=== PATIENT | male | born 1995 | race American Indian/Alaskan Native ===

== ENCOUNTER 2017-09-05 16:27 | Emergency (ER) | payer OTHER ==
[2017-09-05] MEDS ORDERED: Sodium Chloride 0.9% 1,000 ML IV SCH (17:30)
--- NOTE | 2017-09-05 17:54 | EDM.PDOC ---
ED HPI GENERAL MEDICAL PROBLEM - General Chief Complaint: General Stated Complaint: BODY ACHES / CHEST PAIN Time Seen by Provider: 09/05/17 17:00 Source of Information: Reports: Patient, Family History Limitations: Reports: No Limitations - History of Present Illness INITIAL COMMENTS - FREE TEXT/NARRATIVE: 21-year-old male who is been having difficulty sleeping for the last 3 nights, panicking, very anxious about his health and also having intermittent chest pain. He's been drinking alcohol to help with the anxiety. He doesn't do any other drugs according to his father, he is a good athlete and student. No previous health problems, no medications. He arrives very anxious, trembling, hyperventilating. Onset: Gradual (Developed over the past 3 days) Severity: Moderate Worsens with: Reports: Other (Thinks he may have had this start when he had a dream he was at his own .) Associated Symptoms: Reports: Chest Pain, Nausea/Vomiting, Other (Abdominal cramps) Chest Pain Score (Numeric/FACES): 7 - Related Data Allergies Allergy/AdvReac Type Severity Reaction Status Date / Time amoxicillin Allergy Rash Verified 09/05/17 16:37 Penicillins Allergy Rash Verified 09/05/17 16:37 Home Meds: Home Meds NK [No Known Home Meds] 09/05/17 [History] Past Medical History - Past Health History Medical/Surgical History: Denies Medical/Surgical History Social & Family History - Tobacco Use Packs/Tins Daily: 0.5 - Caffeine Use Caffeine Use: Reports: Energy Drinks - Alcohol Use Days Per Week of Alcohol Use: 4 Number of Drinks Per Day: 8 Total Drinks Per Week: 32 Date of Last Drink: 09/04/17 - Recreational Drug Use Recreational Drug Use: No ED ROS GENERAL - Review of Systems Review Of Systems: See Below Constitutional: Reports: Malaise. Denies: Fever, Chills Respiratory: Denies: Shortness of Breath Cardiovascular: Reports: Chest Pain GI/Abdominal: Reports: Abdominal Pain, Nausea, Vomiting Skin: Reports: No Symptoms Neurological: Reports: Dizziness, Headache Psychiatric: Reports: Anxiety ED EXAM, GENERAL - Physical Exam Exam: See Below Exam Limited By: No Limitations General Appearance: Alert, Anxious, Mild Distress Eye Exam: Bilateral Eye: Abnormal EOM Respiratory/Chest: No Respiratory Distress, Lungs Clear Cardiovascular: Regular Rate, Rhythm. No: Tachycardia GI/Abdominal: Other (Very lean abdomen, even mild palpation causes some tenderness) Extremities: Normal Inspection. No: Pedal Edema Neurological: Alert, Oriented Psychiatric: Anxious Skin Exam: Warm, Dry Course - Vital Signs Last Recorded V/S: Last Vital Signs Temp 97.9 F 09/05/17 16:41 Pulse 71 09/05/17 16:41 Resp 26 H 09/05/17 16:41 BP 158/74 H 09/05/17 16:41 Pulse Ox 99 09/05/17 16:41 - Orders/Labs/Meds Labs: Laboratory Tests 09/05/17 09/05/17 09/05/17 Range/Units 17:10 17:10 17:10 WBC 9.1 (4.5-11.0) K/uL RBC 4.40 (4.30-5.90) M/uL Hgb 14.3 (12.0-15.0) g/dL Hct 42.2 (40.0-54.0) % MCV 96 (80-98) fL MCH 33 H (27-31) pg MCHC 34 (32-36) % Plt Count 311 (150-400) K/uL Puncture Site Rt.radial ABG pH 7.521 H (7.350-7.450) ABG pCO2 26.9 L (35.0-42.0) mmHg ABG pO2 67.1 L (75.0-100.0) mmHg ABG HCO3 19.3 L (22.0-26.0) mmol/L ABG Total CO2 16.3 L (23.0-27.0) mmol/L ABG O2 Saturation 99.8 H (95.0-98.0) % ABG O2 Content 19.5 (15.0-23.0) %vol ABG Base Excess 0.4 mm/L ABG Hemoglobin 14.1 (13.5-18.0) g/dL ABG Oxyhemoglobin 97.1 % ABG Carboxyhemoglobin 2.2 H (0.0-1.6) % ABG Methemoglobin 0.5 % Dev Test Passed O2 Delivery Device Room air Sodium 141 (140-148) mmol/L Potassium 3.6 (3.6-5.2) mmol/L Chloride 102 (100-108) mmol/L Carbon Dioxide 28 (21-32) mmol/L Anion Gap 10.7 (5.0-14.0) mmol/L BUN 7 (7-18) mg/dL Creatinine 0.9 (0.8-1.3) mg/dL Est Cr Clr Drug Dosing 126.60 mL/min Estimated GFR (MDRD) > 60 (>60) Glucose 94 (74-106) mg/dL Calcium 9.3 (8.5-10.1) mg/dL Total Bilirubin 0.9 (0.2-1.0) mg/dL AST 30 (15-37) U/L ALT 33 (12-78) U/L Alkaline Phosphatase 103 (46-116) U/L Total Protein 8.1 (6.4-8.2) g/dL Albumin 4.2 (3.4-5.0) g/dL Globulin 3.9 H (2.3-3.5) g/dL Albumin/Globulin Ratio 1.1 L (1.2-2.2) Urine Opiates Screen (NEGATIVE) Ur Oxycodone Screen (NEGATIVE) Urine Methadone Screen (NEGATIVE) Ur Propoxyphene Screen (NEGATIVE) Ur Barbiturates Screen (NEGATIVE) Ur Tricyclics Screen (NEGATIVE) Ur Phencyclidine Scrn (NEGATIVE) Ur Amphetamine Screen (NEGATIVE) U Methamphetamines Scrn (NEGATIVE) Urine MDMA Screen (NEGATIVE) U Benzodiazepines Scrn (NEGATIVE) U Cocaine Metab Screen (NEGATIVE) U Marijuana (THC) Screen (NEGATIVE) Ethyl Alcohol mg/dL 09/05/17 09/05/17 Range/Units 17:10 17:15 WBC (4.5-11.0) K/uL RBC (4.30-5.90) M/uL Hgb (12.0-15.0) g/dL Hct (40.0-54.0) % MCV (80-98) fL MCH (27-31) pg MCHC (32-36) % Plt Count (150-400) K/uL Puncture Site ABG pH (7.350-7.450) ABG pCO2 (35.0-42.0) mmHg ABG pO2 (75.0-100.0) mmHg ABG HCO3 (22.0-26.0) mmol/L ABG Total CO2 (23.0-27.0) mmol/L ABG O2 Saturation (95.0-98.0) % ABG O2 Content (15.0-23.0) %vol ABG Base Excess mm/L ABG Hemoglobin (13.5-18.0) g/dL ABG Oxyhemoglobin % ABG Carboxyhemoglobin (0.0-1.6) % ABG Methemoglobin % Dev Test O2 Delivery Device Sodium (140-148) mmol/L Potassium (3.6-5.2) mmol/L Chloride (100-108) mmol/L Carbon Dioxide (21-32) mmol/L Anion Gap (5.0-14.0) mmol/L BUN (7-18) mg/dL Creatinine (0.8-1.3) mg/dL Est Cr Clr Drug Dosing mL/min Estimated GFR (MDRD) (>60) Glucose (74-106) mg/dL Calcium (8.5-10.1) mg/dL Total Bilirubin (0.2-1.0) mg/dL AST (15-37) U/L ALT (12-78) U/L Alkaline Phosphatase (46-116) U/L Total Protein (6.4-8.2) g/dL Albumin (3.4-5.0) g/dL Globulin (2.3-3.5) g/dL Albumin/Globulin Ratio (1.2-2.2) Urine Opiates Screen Negative (NEGATIVE) Ur Oxycodone Screen Negative (NEGATIVE) Urine Methadone Screen Negative (NEGATIVE) Ur Propoxyphene Screen Negative (NEGATIVE) Ur Barbiturates Screen Negative (NEGATIVE) Ur Tricyclics Screen Negative (NEGATIVE) Ur Phencyclidine Scrn Negative (NEGATIVE) Ur Amphetamine Screen Negative (NEGATIVE) U Methamphetamines Scrn Negative (NEGATIVE) Urine MDMA Screen Negative (NEGATIVE) U Benzodiazepines Scrn Negative (NEGATIVE) U Cocaine Metab Screen Negative (NEGATIVE) U Marijuana (THC) Screen Positive H (NEGATIVE) Ethyl Alcohol 27 mg/dL Meds: Medications Discontinued Medications Generic Name Dose Route Start Last Admin Trade Name Freq PRN Reason Stop Dose Admin Sodium Chloride 1,000 mls @ 1,000 mls/hr 09/05/17 17:30 09/05/17 17:31 Normal Saline IV 1,000 mls/hr ASDIRECTED PREMA Administration Lorazepam 1 mg 09/05/17 18:06 09/05/17 18:15 Ativan PO 09/05/17 18:07 1 mg ONETIME ONE Administration - Re-Assessments/Exams Free Text/Narrative Re-Assessment/Exam: 09/05/17 17:55 ABGs were drawn and confirms hyperventilation. IV was started and he was given 1 L of normal saline. Urine drug screen was positive for marijuana but otherwise clean. 09/05/17 18:03 ABGs confirmed hyperventilation, pH was 7.54. Fluids were started and the patient calmed down and began to feel much better. The other concern is that his EtOH came back 0.027, but he insists he has not had any alcohol since last night. He must have been very intoxicated. Electrolytes are reassuring and normal. Kidney function is normal. 09/05/17 18:04 I gave the patient 1 mg of Ativan by mouth, when his normal saline was finished he was discharged to the care of his father. They can return if symptoms recur, I strongly encouraged him to stay away from alcohol. Departure - Departure Time of Disposition: 18:32 Disposition: Home, Self-Care 01 Condition: Good Clinical Impression: Hyperventilation syndrome, Alcohol abuse - Discharge Information Instructions: Hyperventilation, Alcohol Intoxication, [id number] Referrals: PCP,None [Primary Care Provider] - Forms: ED Department Discharge Care Plan Goals: Rest tonight, try to return to your normal routine tomorrow and avoid alcohol. Return at any time if worsening or concerns. Drink lots of water.
[2017-09-05] MEDS ORDERED: LORazepam 1 MG Tab PO ONE (18:06)
== END 2017-09-05 18:32 | disposition home or self-care (01) ==
LOC: JP.ED 16:27
DX: F45.8 Other somatoform disorders (principal); F10.10 Alcohol abuse, uncomplicated; Y90.1 Blood alcohol level of 20-39 mg/100 ml; Z88.0 Allergy status to penicillin; Z88.1 Allergy status to other antibiotic agents
CPT/HCPCS: 36415; 36600; 80053; 80305; 82803; 85027; 96360; 99285; A9270; G0480; J7040

== ENCOUNTER 2017-11-24 02:45 | Emergency (ER) | payer OTHER ==
--- NOTE | 2017-11-24 06:15 | EDM.PDOCBH ---
<Singh Quinones - Last Filed: 11/24/17 06:10> ED HPI GENERAL MEDICAL PROBLEM - General Chief Complaint: Behavioral/Psych Stated Complaint: EVAL Time Seen by Provider: 11/24/17 03:27 Source of Information: Reports: Police History Limitations: Reports: Intoxication - History of Present Illness INITIAL COMMENTS - FREE TEXT/NARRATIVE: This young man was brought in by law enforcement. Parents had called 911 because this patient had been drinking and had threatened to kill himself. There was a gun and a knife in the house and that was taken away. The patient denies any thoughts of ever hurting himself. Either EMS or police did hear him say that he wanted to kill himself. It's unclear how much she's had to drink. The parents indicated that they want him held and placed in some kind of treatment. denies pain Pain Score (Numeric/FACES): 0 - Related Data Allergies Allergy/AdvReac Type Severity Reaction Status Date / Time amoxicillin Allergy Rash Verified 11/24/17 03:01 Penicillins Allergy Rash Verified 11/24/17 03:01 Home Meds: Home Meds NK [No Known Home Meds] 09/05/17 [History] Past Medical History - Past Health History Medical/Surgical History: Denies Medical/Surgical History Social & Family History - Tobacco Use Smoking Status *Q: Never Smoker Packs/Tins Daily: 0.5 - Caffeine Use Caffeine Use: Reports: Soda - Alcohol Use Days Per Week of Alcohol Use: 4 Number of Drinks Per Day: 8 Total Drinks Per Week: 32 - Recreational Drug Use Recreational Drug Use: No ED ROS GENERAL - Review of Systems Review Of Systems: Unable To Obtain (Patient is intoxicated) ED EXAM, BEHAVIORAL HEALTH - Physical Exam Exam: See Below Exam Limited By: Intoxication General Appearance: Other (He is initially asleep but he wakes up and answers a few questions but definitely not getting any kind of a good history) Eye Exam: Bilateral Eye: Normal Inspection Throat/Mouth: Normal Inspection Head: Atraumatic Respiratory/Chest: Lungs Clear Cardiovascular: Regular Rate, Rhythm Neurological: CN II-XII Intact, No Motor/Sensory Deficits, Other (Appears to be mildly to moderately intoxicated. He moves all extremities.) Psychiatric: Other (Fairly common individual but did not want to answer many questions so he was allowed to sleep). No: Flight of Ideas, Homicidal Thoughts Skin Exam: Warm, Dry COURSE, BEHAVIORAL HEALTH COMP - Course Vital Signs: Last Vital Signs Temp 98 F 11/24/17 13:36 Pulse 78 11/24/17 13:36 Resp 16 11/24/17 13:36 BP 133/78 11/24/17 13:36 Pulse Ox 96 11/24/17 13:36 Orders, Labs, Meds: Laboratory Tests 11/24/17 11/24/17 11/24/17 Range/Units 03:40 03:40 03:40 WBC 6.8 (4.5-11.0) K/uL RBC 3.96 L (4.30-5.90) M/uL Hgb 12.8 (12.0-15.0) g/dL Hct 37.4 L (40.0-54.0) % MCV 94 (80-98) fL MCH 32 H (27-31) pg MCHC 34 (32-36) % Plt Count 302 (150-400) K/uL Neut % (Auto) 49 (36-66) % Lymph % (Auto) 41 (24-44) % Dickinson % (Auto) 8 H (2-6) % Eos % (Auto) 2 (2-4) % Baso % (Auto) 1 (0-1) % Sodium 145 (140-148) mmol/L Potassium 4.1 (3.6-5.2) mmol/L Chloride 108 (100-108) mmol/L Carbon Dioxide 25 (21-32) mmol/L Anion Gap 12.1 (5.0-14.0) mmol/L BUN 9 (7-18) mg/dL Creatinine 0.9 (0.8-1.3) mg/dL Est Cr Clr Drug Dosing 134.40 mL/min Estimated GFR (MDRD) > 60 (>60) Glucose 99 (74-106) mg/dL Calcium 8.7 (8.5-10.1) mg/dL Total Bilirubin 0.3 D (0.2-1.0) mg/dL AST 29 (15-37) U/L ALT 30 (12-78) U/L Alkaline Phosphatase 90 (46-116) U/L Total Protein 7.7 (6.4-8.2) g/dL Albumin 3.9 (3.4-5.0) g/dL Globulin 3.8 H (2.3-3.5) g/dL Albumin/Globulin Ratio 1.0 L (1.2-2.2) Salicylates 0.5 L (2.0-20.0) mg/dL Urine Opiates Screen (NEGATIVE) Ur Oxycodone Screen (NEGATIVE) Urine Methadone Screen (NEGATIVE) Ur Propoxyphene Screen (NEGATIVE) Acetaminophen 0.0 L (10.0-30.0) ug/mL Ur Barbiturates Screen (NEGATIVE) Ur Tricyclics Screen (NEGATIVE) Ur Phencyclidine Scrn (NEGATIVE) Ur Amphetamine Screen (NEGATIVE) U Methamphetamines Scrn (NEGATIVE) Urine MDMA Screen (NEGATIVE) U Benzodiazepines Scrn (NEGATIVE) U Cocaine Metab Screen (NEGATIVE) U Marijuana (THC) Screen (NEGATIVE) Ethyl Alcohol mg/dL 11/24/17 11/24/17 Range/Units 03:40 07:36 WBC (4.5-11.0) K/uL RBC (4.30-5.90) M/uL Hgb (12.0-15.0) g/dL Hct (40.0-54.0) % MCV (80-98) fL MCH (27-31) pg MCHC (32-36) % Plt Count (150-400) K/uL Neut % (Auto) (36-66) % Lymph % (Auto) (24-44) % Dickinson % (Auto) (2-6) % Eos % (Auto) (2-4) % Baso % (Auto) (0-1) % Sodium (140-148) mmol/L Potassium (3.6-5.2) mmol/L Chloride (100-108) mmol/L Carbon Dioxide (21-32) mmol/L Anion Gap (5.0-14.0) mmol/L BUN (7-18) mg/dL Creatinine (0.8-1.3) mg/dL Est Cr Clr Drug Dosing mL/min Estimated GFR (MDRD) (>60) Glucose (74-106) mg/dL Calcium (8.5-10.1) mg/dL Total Bilirubin (0.2-1.0) mg/dL AST (15-37) U/L ALT (12-78) U/L Alkaline Phosphatase (46-116) U/L Total Protein (6.4-8.2) g/dL Albumin (3.4-5.0) g/dL Globulin (2.3-3.5) g/dL Albumin/Globulin Ratio (1.2-2.2) Salicylates (2.0-20.0) mg/dL Urine Opiates Screen Negative (NEGATIVE) Ur Oxycodone Screen Negative (NEGATIVE) Urine Methadone Screen Negative (NEGATIVE) Ur Propoxyphene Screen Negative (NEGATIVE) Acetaminophen (10.0-30.0) ug/mL Ur Barbiturates Screen Negative (NEGATIVE) Ur Tricyclics Screen Negative (NEGATIVE) Ur Phencyclidine Scrn Negative (NEGATIVE) Ur Amphetamine Screen Negative (NEGATIVE) U Methamphetamines Scrn Negative (NEGATIVE) Urine MDMA Screen Negative (NEGATIVE) U Benzodiazepines Scrn Negative (NEGATIVE) U Cocaine Metab Screen Negative (NEGATIVE) U Marijuana (THC) Screen Positive H (NEGATIVE) Ethyl Alcohol 218 mg/dL Re-Assessment/Re-Exam: Initial blood alcohol was greater than 200. The plan is to wait and repeat this alcohol or if he awakens and appears fairly sober then we'll go ahead and call the crisis team and they will evaluate him. He'll be turned over to the incoming ER physician at 7 AM. Departure - Departure Disposition: DC/Tfer to Psych Hosp/Unit 65 Clinical Impression: Suicidal ideation - Discharge Information Referrals: PCP,None [Primary Care Provider] - Forms: ED Department Discharge <OfficerPrabhu - Last Filed: 11/24/17 14:00> COURSE, BEHAVIORAL HEALTH COMP - Course Re-Assessment/Re-Exam: Assessment by the psychiatric crisis team recommends inpatient treatment. He is currently not on a 72 hour hold will attempt to obtain placement first and reevaluate as we go Departure - Departure Time of Disposition: 13:59 Condition: Fair - Assessment/Plan Plan: Assessment Acuity = acute Site and laterality = suicidal ideation complicated during event of acute alcohol intoxication Etiology = unclear etiology Manifestations = none Location of injury = Home Lab values = CBC, CMP, urinalysis unremarkable urine drug screen positive for cannabis alcohol was 218 time of intake Plan Was accepted by [facility] will be transported via [facility] transport, because his unwillingness to go for treatment he is placed on a 72 hour hold This note was dictated using [employer] voice recognition software please call with any questions on syntax or lexie.
== END 2017-11-24 18:58 ==
LOC: JP.ED 02:45
DX: R45.851 Suicidal ideations (principal); F10.129 Alcohol abuse with intoxication, unspecified; Y90.7 Blood alcohol level of 200-239 mg/100 ml; Z88.0 Allergy status to penicillin; Z88.1 Allergy status to other antibiotic agents
CPT/HCPCS: 36415; 80053; 80305; 85025; 99284; G0480